=== PATIENT | female | born 1940 | race Caucasian/White ===

== ENCOUNTER 2017-01-11 14:18 | Emergency (ER) | payer OTHER ==
[~2017-01-11] VITALS: Ht 157.5 cm; Wt 71.2 kg
[~2017-01-11 14:18] MED LIST: AMLODIPINE BESYL5 MG PO; COLACE100 MG PO; DILAUDID2 MG PO; HERBLAX PO; LIPITOR20 MG PO; LISINOPRIL-HCT1 EAC3 PO; LOSARTAN-HCTZ1 EAC1 PO; NAPROXEN500 M1 PO; NAPROXEN500 MG PO; TOPROL XL100 MG PO; TORADOL10 MG PO; TRAMADOL HCL50 MG PO; VALIUM5 MG PO
[2017-01-11 16:06] VITALS: BP 154/88
== END 2017-01-11 16:09 | disposition home or self-care (01) ==
LOC: EME 14:18
DX: S93.401A Sprain of unspecified ligament of right ankle, initial encounter (principal); W10.9XXA Fall (on) (from) unspecified stairs and steps, initial encounter
CPT/HCPCS: 73610; 73630; 99281; 99284